=== PATIENT | female | born 2000 | race Hispanic/Latino ===

== ENCOUNTER 2021-05-05 18:26 | Emergency (ER) | payer SELFPAY ==
[2021-05-05 20:06] LABS: Urine Blood Negative (Negative); Urine Glucose Negative (Negative); Urine Protein Negative (Negative); Urine Specific Gravity 1.015 (1.005-1.030)
[2021-05-05 20:24] LABS: Absolute Lymphocytes (CBC) 1.7 K/uL (0.7-4.9); Hematocrit 38.3 % (36.0-45.0); Lymphocytes % 14.4 % (15.3-44.8); MPV 9.4 fL (7.6-11.3); RBC Red Blood Cell Count 4.45 M/uL (3.86-4.86)
--- NOTE | 2021-05-05 21:18 | RAD REPORT ---
EXAM DESCRIPTION: US - Matter Eval Tm 1 - 05/05/2021 9:00 pm CLINICAL HISTORY: Abd pain;Vaginal bleeding Early . COMPARISON: <Comparisons> FINDINGS: A single gestational sac is seen within the uterus. The shape of the sac is within normal limits for gestational age. Within the sac is a single pole with crown-rump length of 16 mm, co rrelating to estimated gestational age of 8 weeks 0 days. Estimated date of delivery is 12/15/2021. Heart rate is 157 BPM. The placenta is not yet developed / visualized due to early gestational age. The maternal adnexa and left ovary are within normal limits. Normal Doppler blood flow was demonstrat ed to the left ovary. The right ovary was obscured by bowel gas. IMPRESSION: Single live early intrauterine gestation with estimated gestational age of 8 weeks 0 day s, RADHIKA 12/15/2021. Right ovary not well assessed due to bowel gas.
[2021-05-05 21:35] LABS: BUN Blood Urea Nitrogen 6 mg/dL (7-18); Bicarbonate 26 mmol/L (21-32); Glucose Level 91 mg/dL (74-106); HCG, Quantitative 66835 mIU/mL (1-3); Potassium 3.3 mmol/L (3.5-5.1); Sodium Level 137 mmol/L (136-145)
--- NOTE | 2021-05-05 22:34 | EDPHYS ---
Physician Documentation [facility] Name: Katlin Escamilla Age: 20 yrs Sex: Female : 2000 Arrival Date: 05/05/2021 Time: 18:31 Bed 25 Private MD: ED Physician Gregg Ceja HPI: 05/05 20:59 This 20 yrs old Female presents to ER via Ambulatory with complaints of kdr Vaginal Bleeding, + Preg <12wks. 20:59 The patient presents to the emergency department with vaginal bleeding, that is light. kdr course: care: none, Leakage of Fluid: none appreciated, Ultrasound: the patient has not had an ultrasound, Risk/complications: previous complications- Had a prior miscarriage at about 12 weeks. Previous pregnancies: in previous pregnancies patient has had Spontaneous miscarriage. The patient has not experienced similar symptoms in the past. The patient has not recently seen a physician. 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 - Social history:: Smoking status: Patient denies any tobacco usage or history of. ROS: 20:59 Constitutional: Negative for fever, chills, and weight loss, Eyes: Negative for injury, kdr pain, redness, and discharge, Neck: Negative for injury, pain, and swelling, Cardiovascular: Negative for chest pain, palpitations, and edema, Respiratory: Negative for shortness of breath, cough, wheezing, and pleuritic chest pain, Abdomen/GI: Negative for abdominal pain, nausea, vomiting, diarrhea, and constipation, Back: Negative for injury and pain, MS/Extremity: Negative for injury and deformity, Skin: Negative for injury, rash, and discoloration, Neuro: Negative for headache, weakness, numbness, tingling, and seizure activity. Psych: Negative for depression, anxiety, suicide ideation, homicidal ideation, and hallucinations, Allergy/Immunology: Negative for hives, rash, and allergies, Endocrine: Negative for neck swelling, polydipsia, polyuria, polyphagia, and marked weight changes, Hematologic/Lymphatic: Negative for swollen nodes, abnormal bleeding, and unusual bruising. 20:59 : Positive for vaginal bleeding, Negative for Exam: 20:59 Constitutional: This is a well developed, well nourished patient who is awake, alert, kdr and in no acute distress. Head/Face: Normocephalic, atraumatic. Eyes: Pupils equal round and reactive to light, extra-ocular motions intact. Lids and lashes normal. Conjunctiva and sclera are non-icteric and not injected. Cornea within normal limits. Periorbital areas with no swelling, redness, or edema. Neck: Trachea midline, no thyromegaly or masses palpated, and no cervical lymphadenopathy. Supple, full range of motion without nuchal rigidity, or vertebral point tenderness. No Meningismus. Chest/axilla: Normal chest wall appearance and motion. Nontender with no deformity. No lesions are appreciated. Cardiovascular: Regular rate and rhythm with a normal S1 and S2. No gallops, murmurs, or rubs. Normal PMI, no JVD. No pulse deficits. Respiratory: Lungs have equal breath sounds bilaterally, clear to auscultation and percussion. No rales, rhonchi or wheezes noted. No increased work of breathing, no retractions or nasal flaring. Abdomen/GI: Soft, non-tender, with normal bowel sounds. No distension or tympany. No guarding or rebound. No evidence of tenderness throughout. Back: No spinal tenderness. No costovertebral tenderness. Full range of motion. Skin: Warm, dry with normal turgor. Normal color with no rashes, no lesions, and no evidence of cellulitis. MS/ Extremity: Pulses equal, no cyanosis. Neurovascular intact. Full, normal range of motion. Neuro: Awake and alert, GCS 15, oriented to person, place, time, and situation. Cranial nerves II-XII grossly intact. Motor strength 5/5 in all extremities. Sensory grossly intact. Cerebellar exam normal. Normal gait. Psych: Awake, alert, with orientation to person, place and time. Behavior, mood, and affect are within normal limits. Vital Signs: 18:39 BP 138 / 87; Pulse 78; Resp 16; Temp 98.4(TE); Pulse Ox 100% ; Weight 72.57 kg; Height ab2 5 ft. 4 in. (162.56 cm); Pain 6/10; 19:52 BP 107 / 65; Pulse 64; Resp 18; Pulse Ox 100% ; ss7 20:30 BP 116 / 62; Pulse 58; Resp 18; Pulse Ox 100% on R/A; ss7 22:15 BP 105 / 68; Pulse 60; Resp 18; Pulse Ox 99% on R/A; ss7 18:39 Body Mass Index 27.46 (72.57 kg, 162.56 cm) ab2 MDM: 20:59 Data reviewed: vital signs, nurses notes, lab test result(s), radiologic studies. kdr Counseling: I had a detailed discussion with the patient and/or guardian regarding: the historical points, exam findings, and any diagnostic results supporting the discharge/admit diagnosis, lab results, radiology results, the need for outpatient follow up. ED course: Ultrasound reports an 8-week IUP with normal 150-israel heart rate. No evidence of bleeding or abruption. 22:33 Patient medically screened. kdr 05/05 19:54 Order name: Abo/rh Typing; Complete Time: 21:55 kdr 05/05 19:54 Order name: Basic Metabolic Panel; Complete Time: 21:54 kdr 05/05 19:54 Order name: CBC with Diff; Complete Time: 21:54 kdr 05/05 19:54 Order name: Quantitative Hcg; Complete Time: 21:54 kdr 05/05 20:06 Order name: Urine Dipstick-Ancillary; Complete Time: 21:55 EDMS 05/05 19:54 Order name: IV Saline Lock; Complete Time: 20:08 kdr 05/05 19:54 Order name: Labs collected and sent; Complete Time: 20:08 kdr 05/05 19:54 Order name: NPO; Complete Time: 20:08 kdr 05/05 19:54 Order name: Urine Dipstick-Ancillary (obtain specimen); Complete Time: 20:08 kdr 05/05 20:58 Order name: Matter Eval Tm 1; Complete Time: 21:55 EDMS Administered Medications: No medications were administered Point of Care Testing: Urine : 21:11 hCG Reading: Positive; Control Reading: Positive; ss7 Disposition Summary: 05/05/21 22:33 Discharge Ordered Location: Home kdr Problem: new kdr Symptoms: have improved kdr Condition: Stable kdr Diagnosis - Threatened kdr Followup: kdr - With: Private Physician - When: 2 - 3 days - Reason: If symptoms return, Further diagnostic work-up, Recheck today's complaints, Continuance of care, Re-evaluation by your physician Discharge Instructions: - Discharge Summary Sheet kdr - Threatened Miscarriage kdr Forms: - Medication Reconciliation Form kdr - Thank You Letter kdr Signatures: Dispatcher [employer] EDMS Gregg Ceja MD MD kdr Perico Ni2 Corrections: (The following items were deleted from the chart) 20:28 20:13 OB Complete+US.RAD.BRZ ordered. EDMS EDMS 20:58 20:28 OB Limited ordered. EDMS EDMS
--- NOTE | 2021-05-05 22:34 | ER ---
Nurse's Notes [facility] Name: Katlin Escamilla Age: 20 yrs Sex: Female : 2000 Arrival Date: 05/05/2021 Time: 18:31 Bed 25 Private MD: Diagnosis: Threatened Presentation: 05/05 18:39 Chief complaint: Patient states: "I just found out I was 2 weeks ago, so im ab2 not sure how far along I am. I fell Wednesday and hit my stomach and yesterday I started spotting so I wanted to come get checked out." Pt c/o spotting and lower abdominal cramping. Coronavirus screen: Vaccine status: Patient reports being unvaccinated. Client denies travel out of the [place] in the last 14 days. At this time, the client does not indicate any symptoms associated with coronavirus-19. Ebola Screen: Patient negative for fever greater than or equal to 101.5 degrees Fahrenheit, and additional compatible Ebola Virus Disease symptoms Patient denies exposure to infectious person. Patient denies travel to an Ebola-affected area in the 21 days before illness onset. No symptoms or risks identified at this time. Initial Sepsis Screen: Does the patient meet any 2 criteria? No. Patient's initial sepsis screen is negative. Does the patient have a suspected source of infection? No. Patient's initial sepsis screen is negative. Risk Assessment: Do you want to hurt yourself or someone else? Patient reports no desire to harm self or others. Onset of symptoms is unknown. 18:39 Method Of Arrival: Ambulatory ab2 18:39 Acuity: JOEL 3 ab2 Triage Assessment: 18:43 General: Appears in no apparent distress. comfortable, Behavior is calm, cooperative, ab2 appropriate for age. Pain: Complains of pain in suprapubic area. : Reports pain in suprapubic area vaginal bleeding that is spotty. 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 - Social history:: Smoking status: Patient denies any tobacco usage or history of. Screenin:52 Abuse screen: Denies threats or abuse. Nutritional screening: No deficits noted. ss7 Tuberculosis screening: No symptoms or risk factors identified. Fall Risk IV access (20 points). Vital Signs: 18:39 BP 138 / 87; Pulse 78; Resp 16; Temp 98.4(TE); Pulse Ox 100% ; Weight 72.57 kg; Height ab2 5 ft. 4 in. (162.56 cm); Pain 6/10; 19:52 BP 107 / 65; Pulse 64; Resp 18; Pulse Ox 100% ; ss7 20:30 BP 116 / 62; Pulse 58; Resp 18; Pulse Ox 100% on R/A; ss7 22:15 BP 105 / 68; Pulse 60; Resp 18; Pulse Ox 99% on R/A; ss7 18:39 Body Mass Index 27.46 (72.57 kg, 162.56 cm) ab2 ED Course: 18:31 Patient arrived in ED. es 18:43 Triage completed. ab2 18:44 Arm band placed on right wrist. ab2 19:17 Gregg Ceja MD is Attending Physician. kdr 19:52 Patient has correct armband on for positive identification. Bed in low position. Call ss7 light in reach. Side rails up X2. 19:52 No provider procedures requiring assistance completed. Inserted saline lock: 20 gauge ss7 in right antecubital area, using aseptic technique. 19:57 Shellie Arroyo, RN is Primary Nurse. ss7 20:08 Abo/rh Typing Sent. ss7 20:08 Basic Metabolic Panel Sent. ss7 20:08 CBC with Diff Sent. ss7 20:08 Quantitative Hcg Sent. ss7 21:00 Matter Eval Tm 1 In Process Unspecified. EDMS Administered Medications: No medications were administered Point of Care Testing: Urine : 21:11 hCG Reading: Positive; Control Reading: Positive; ss7 Outcome: 22:33 Discharge ordered by . kdr 22:45 Patient left the ED. ss7 Signatures: Dispatcher [employer] EDMS Gregg Ceaj MD MD kdr Salyer, Edna es Bleininger, Alexis ab2 Shellie Arroyo, RN RN ss7
[2021-05-06 00:23] VITALS: TEMP 98.4
[2021-05-06 00:26] VITALS: BP 105/68; O2SAT 99
== END 2021-05-05 22:45 | disposition home or self-care (01) ==
LOC: ER 18:26
DX: O20.0 Threatened abortion (principal); Z3A.08 8 weeks gestation of pregnancy
CPT/HCPCS: 36415; 76801; 80048; 81003; 84702; 85025; 86900; 86901; 99284